=== PATIENT | female | born 1965 | race Caucasian/White ===

== ENCOUNTER → 2024-11-12 13:35 | Outpatient (REF) | payer OTHER, SELFPAY | LOC: RCS 13:35 | PROVIDERS: ATTENDING PHYSICIAN Physician Assistant | DX: I49.1 Atrial premature depolarization (principal); R42 Dizziness and giddiness | CPT/HCPCS: 93005 ==

== ENCOUNTER → 2024-11-23 13:45 | Outpatient (REF) | payer OTHER, SELFPAY | LOC: HWRCS 13:45 | PROVIDERS: ATTENDING PHYSICIAN Physician Assistant | DX: I49.1 Atrial premature depolarization (principal); R42 Dizziness and giddiness; I10 Essential (primary) hypertension | CPT/HCPCS: 93306 ==

== ENCOUNTER → 2024-12-17 12:39 | Outpatient (REF) | payer OTHER, SELFPAY | LOC: HWWDC 12:39 | PROVIDERS: ATTENDING PHYSICIAN Physician Assistant | DX: Z12.31 Encounter for screening mammogram for malignant neoplasm of breast (principal) | CPT/HCPCS: 77063; 77067 ==

== ENCOUNTER → 2025-03-12 06:45 | Outpatient (REF) | payer BC, SELFPAY | LOC: PAVMRI 06:45 | PROVIDERS: ATTENDING PHYSICIAN Physician Assistant | DX: R42 Dizziness and giddiness (principal); R26.9 Unspecified abnormalities of gait and mobility | CPT/HCPCS: 70551 ==